=== PATIENT | male | born 1960 | race Caucasian/White ===

== ENCOUNTER 2019-04-15 08:57 | Day surgery (SDC) | payer OTHER ==
[2019-04-15] MEDS ORDERED: PROPOFOL 40 ML (10:38)
[2019-04-15] MEDS ORDERED: LIDOCAINE 2% (SDV) 5 ML INJ (10:38)
[2019-04-15] MEDS ORDERED: ONDANSETRON 4 MG INJ IV (11:00)
[2019-04-15] MEDS ORDERED: hydrALAzine 20 MG INJ IV (11:00)
[2019-04-15] MEDS ORDERED: LABETALOL HCL 20MG INJ IV (11:00)
[2019-04-15] MEDS ORDERED: PROPOFOL 20 ML (11:22)
== END 2019-04-15 11:55 | disposition home or self-care (01) ==
LOC: GIL 08:57
DX: Z12.11 Encounter for screening for malignant neoplasm of colon (principal); D12.4 Benign neoplasm of descending colon; D12.3 Benign neoplasm of transverse colon; K57.30 Diverticulosis of large intestine without perforation or abscess without bleeding; K64.9 Unspecified hemorrhoids
CPT/HCPCS: 45380; 88305